=== PATIENT | female | born 1960 | race Caucasian/White ===

== ENCOUNTER 2016-03-10 13:14 | Day surgery (SDC) | payer OTHER ==
[~2016-03-10] VITALS: Ht 162.6 cm; Wt 72.1 kg
[~2016-03-10 13:14] MED LIST: 0.9% Sodium Chloride 1,000 ML IV SCH; ASPI-973 PO; ATEN100T PO; ATOR20TA PO; FLEC100T2 PO; FLUO60TA PO; GARCINIA CAMBOGIA PO; LUTE20TA PO; Lactated Ringer's 1,000 ML IV ONE; MELA1TAB25 SL; METF-496 PO; OMEP20TA86 PO; Sodium Biphos-Phos 133 mL Enema RECTAL PRN; Sodium Chloride LOK Flush 10 mL Syringe IV PRN
[2016-03-10] MEDS ORDERED: Propofol 10,000 mCg/mL 20 mL Inj ONE (13:15)
[2016-03-10] MEDS ORDERED: Ketamine 10 mg/mL 20 mL Inj ONE (13:15)
[2016-03-10] MEDS ORDERED: Glycopyrrolate 0.2 mg/mL 5 mL Inj ONE (13:15)
[2016-03-10 13:40] VITALS: BP 137/88; PULSE 60; RESP 18; O2SAT 96
--- NOTE | 2016-03-10 14:19 | PCM.HPANE ---
Patient Data Date of Service: Mar 10, 2016 Surgeon Admitting Provider: Attending Provider:Charan Stanley MD Primary Care Physician:Jessica Mayorga Other Provider:Yadira Johnson Anesthesia Reason for Visit Positive Fit Ht/WT & BMI Height (Feet): 5 Height (Inches): 4 Weight (Kilograms): 72.12 Body Mass Index 27.00 Allergies Coded Allergies: Penicillins (Verified Allergy, Unknown, 03/09/16) Sulfa (Sulfonamide Antibiotics) (Verified Allergy, Unknown, 03/09/16) diltiazem (Verified Allergy, Unknown, 03/09/16) Past Anesthesia History Anesthesia History: Denies:: Abnormal Airway, Anesthesia Reactions, Difficult Intubation, Fam Anesthesia Reaction, Fam Malignant Hypertherm, Malignant Hyperthermia Diabetes History Hx Diabetes?: Yes Current Bedside Blood Glucose: 98 MRSA MRSA: No Medications Blood Thinner: Aspirin Last Dose Blood Thinner: Mar 09, 2016 Home Meds Incl Beta Jorge: Yes Date Beta Jorge Taken: Mar 10, 2016 Time Beta Jorge Taken: 0600 Reported Medications Omeprazole 20 Mg Tablet.dr20 Mg PO DAILY 03/09/16 Metformin ER 1,000 Mg Tablet1,000 Mg PO DAILYWD Ref 0 03/09/16 Melatonin 1 Mg Tab.subl1 Mg SL HS 03/09/16 Lutein 20 Mg Fuyepz74 Mg PO DAILY 03/09/16 [Garcinia Cambogia] No Conflict Check2 Tab PO DAILY 03/09/16 Fluoxetine 60 Mg Evbpiy05 Mg PO DAILY Ref 0 03/09/16 Flecainide Acetate 100 Mg [id number] Mg PO BID 03/09/16 Atorvastatin (Lipitor)20 Mg Buixvx03 Mg PO DAILY Ref 0 03/09/16 Atenolol 100 Mg Bildef756 Mg PO BID Ref 0 03/09/16 Aspirin 81 Mg Zhekni58 Mg PO DAILY Ref 0 03/09/16 History HEENT History: Denies:: Abnormal Airway Difficult Intubation Dysphagia Hearing Problem Hx of Heart Problems?: Yes Cardiovascular History: Positive for:: Atrial Fibrillation Hypertension Pacemaker (heart rate too slow ) Denies:: AICD Valvular Heart Disease Hx of Respiratory Problem?: No Respiratory History: Denies:: Asthma COPD Cough Hemoptysis Pneumonia Tuberculosis Neurological History: Denies:: CVA Peripheral Neuropathy Hx of GI Problems?: Yes Gastrointestinal History: Positive for:: Gall Bladder Disease (removed ) Gastroesphageal Reflux (controlled with medication) Rectal Bleeding (positive occult test) Denies:: Cirrhosis Diverticulitis Hiatal Hernia Liver Disease Female Hx: Denies:: Currently (hysterectomy) Musculoskeletal History: Denies:: Fibromyalgia Joint Replacement Psycho Social History: Positive for:: Anxiety Hx Depression Hx Surgeries?: Yes (left side ablation, pacemaker (2), hysterectomy, debra, knee sx, right eye) Hx Any Other Health Problems?: Yes Hx Diabetes: YesBedside Blood Glucose: 98 Other Pertinent History: frequent urination Hx Alcohol Use: Yes (maybe once a month) Smoking Status: Current Every Day Smoker (smokes 5 cigarettes daily) Have You Smoked inLast 12 mo: Yes Stop/Bang Treated for Sleep Apnea?: No Do You Have a CPAP Machine?: No S-Snoring: Do You Snore Loudly: No T-Tired: feel tired, fatigued: No O-Obsered: Observed not breath: No P-Blood Pressure: treated: Yes B- Body Mass Index > 35 kg/m2: No A- Age over 50: Yes N- Neck Large Circumference: No G- Gender Male: No JALEN Total Score: 2 JALEN Risk Assessment: Low Risk, <3 Yes Risk Assessment Category Category 1A: Patient has history of documented sleep apnea, and HAS NOT received any narcotic, sedative or anesthesia administration during this stay. Category 1B: Patient has history of documented sleep apnea, and HAS received any narcotic , sedative or anesthesia administration during this stay Category 2: Patient has SUSPECTED Obstructive Sleep Apnea, and HAS received any narcotic , sedative or anesthesia administration during this stay. Category 3: Patient has SUSPECTED Obstructive Sleep Apnea and HAS NOT received narcotic, sedative or anesthesia administration during this stay. Category 4: Outpatient in Procedural Areas with known sleep apnea or who screen positive for High Risk via the STOP/BANG questionnaire. Exam Exam Vital Signs Vital Signs Date Time Temp Pulse Resp B/P Pulse Ox O2 Delivery O2 Flow Rate FiO2 03/10/16 13:40 36.4 60 18 137/88 96 Room Air General Appearance: Alert, Oriented X3, Cooperative, No Acute Distress HEENT/AIRWAY: MP 2 Lungs: Clear to Auscultation, Normal Air Movement Heart: Regular Rate/Rhythm, No Murmurs/Rubs/Gallops Meds/Labs/Diagnostics Admission Meds Current Medications Lactated Ringer's (Lr) 1,000 ml @ 10 mls/hr Q24H ONCE IV Last administered on 03/10/16t 13:41; Start 03/10/16 at 06:00; Stop 03/11/16 at 05:59 Bedside Blood Glucose: 98 Plan Impression Patient chart reviewed, patient interviewed and anesthestic plan with risks, benefits, and alternatives discussed, and informed consent obtained. NPO Status: Appropriate ASA Physical Status: ASA2 Mod Systemic Disease Anesthetic Plan: MAC Bene/Risks/Altern/Consents: Yes HP Complete Prior to Induction: Yes Isidro Mendoza MD Mar 10, 2016 14:19
[2016-03-10 15:15] VITALS: BP 160/89; PULSE 83; RESP 14; O2SAT 94
[2016-03-10 15:25] VITALS: BP 134/77; PULSE 58; O2SAT 92
--- NOTE | 2016-03-10 15:38 | ENDO ---
[address] [address] ENDOSCOPY PROCEDURE PATIENT: RUBÉN HERNANDES : 1960 MR#: [id number] ADMIT: 03/10/2016 JOB ID: [id number] DATE: 03/10/2016 PREPROCEDURE DIAGNOSIS: Hemoccult-positive stool. POSTPROCEDURE DIAGNOSIS: Sigmoid colon polyp, transverse colon polyp, hemorrhoids. PROCEDURE: Colonoscopy with biopsies. ENDOSCOPIST: Dr. Charan Stanley. INDICATIONS: The patient is a 55-year-old woman who was referred for Hemoccult-positive stool. She did not have any gross blood in her stool, no unplanned weight loss, no change in bowel habits. She had no family history of colon cancer. She was aware of some hemorrhoidal tissue. After discussion of risks and benefits, she agreed to proceed with colonoscopy. Because of sick sinus syndrome with pacemaker present, the procedure was done with monitored anesthesia care. MEDICATIONS: See the anesthesia record. FINDINGS: There was a 2-3 mm flat polyp in the sigmoid colon and a 2-3 mm flat polyp in the transverse colon. There were scattered sigmoid diverticula. There were moderate internal hemorrhoids. DESCRIPTION OF PROCEDURE: Procedural sedation was achieved. The patient was connected to hemodynamic monitoring, pulse oximetry, capnography. A magnet was placed on her pacemaker. After digital rectal examination, the PCF H 180 AL colonoscope was passed under visualization until the ileocecal valve and appendiceal orifice were visualized. Photo documentation was only achieved at the ileocecal valve. The scope was then withdrawn and carefully retroflexed in the rectum. There was a 2-3 mm flat polyp in the transverse colon which was removed with cold forceps. There were scattered sigmoid diverticula. There was a 2-3 mm flat polyp in the sigmoid colon which was removed with cold forceps. Retroflexion revealed moderate internal hemorrhoids. No other masses or mucosal abnormalities were identified. The scope was withdrawn and the procedure was terminated. She tolerated the entire procedure well. RECOMMENDATIONS: A letter will be mailed with pathology results. Based on pathology results, colonoscopy in five years is recommended. High-fiber diet is recommended.
[2016-03-10] MEDS ORDERED: Lactated Ringer's 1,000 ML IV SCH (15:45)
[2016-03-10] MEDS ORDERED: Atropine 0.4 mg/mL Inj IVPUSH PRN (15:45)
[2016-03-10] MEDS ORDERED: Ondansetron 2 mg/mL 2 mL Inj IVPUSH PRN (15:45)
--- NOTE | 2016-03-10 15:51 | PCM.ANEP1 ---
Post Anesthesia Phase 1 PACU Phase 1 Assessment Date of Service: Mar 10, 2016 Vital Signs Vital Signs Date Time Temp Pulse Resp B/P Pulse Ox O2 Delivery O2 Flow Rate FiO2 03/10/16 15:25 58 134/77 92 Room Air 03/10/16 15:15 83 14 160/89 94 Room Air 03/10/16 13:40 36.4 60 18 137/88 96 Room Air Anesthetic Administered: MAC Level of Alertness: Sleepy, easy to arouse TRIPATHI's with Equal Strength: Yes Pain: No Nausea or Vomiting: No Oxygen Delivery: Room Air Lungs: Clear to Auscultation, Normal Air Movement Dermatome Level: Full Sensation Isidro Mendoza MD Mar 10, 2016 15:51
[2016-03-10 15:53] VITALS: BP 124/63; PULSE 62; RESP 14; O2SAT 96
--- NOTE | 2016-03-15 14:54 | PATH ---
SURGICAL PATHOLOGY Attending Physician:Johnathan Steven CASE STATUS: Signed Out PATIENT NAME: RUBÉN HERNANDES PID: [id number] : 1960 DATE COLLECTED:03/10/2016 00:00 SPECIMEN: 1: Colon, Biopsy 2: Colon, Biopsy CLINICAL HISTORY: 1: SIGMOID COLON POLYP 2: TRANSVERSE COLON POLYP FINAL DIAGNOSIS: 1. Sigmoid Colon Polyp: Benign colonic mucosa with superficial mucosal hyperplasia. Negative for dysplasia and malignancy. Multiple microscopic levels examined. 2. Transverse Colon Polyp: Sessile serrated adenoma. ICD10 D12.3 GROSS DESCRIPTION: The specimen is received in two formalin filled containers labeled with the patient's name. 1). The specimen is sublabeled "sigmoid colon polyp" and consists of a 0.3 x 0.2 x 0.2 CM portion of tissue which is entirely submitted in cassette 1A. 2). The specimen is sublabeled "transverse colon polyp" and consists of a 0.3 x 0.3 x 0.2 CM portion of tissue which is entirely submitted in cassette 2A. 03/11/2016 [facility] MICRO DESCRIPTION: Please see diagnosis. ICD-9 CODES: CPT CODES: 1: 25035 2: 98767 Electronically Signed Out Sofia Capellan MD [facility] Pathology [facility] [address], [place] [address] Technical component performed at [facility], [facility] [address], [place], [address]
--- NOTE | 2016-03-17 21:43 | PCM.ANEP2 ---
Post Anesthesia Evaluation ASA/CMS Post Anesthesia Date of Service: Mar 10, 2016 VS in Patient's Normal Range?: Yes Resp Stable; Airway Patent?: Yes CV Function & Hydration Stable: Yes Mental Status Recovered?: Yes Pain control Satisfactory?: Yes N/V Control Satisfactory?: Yes Isidro Mendoza MD Mar 17, 2016 21:43
== END 2016-03-10 23:59 | disposition home or self-care (01) ==
LOC: END 13:14
PROVIDERS: ATTEND Student in an Organized Health Care Education/Training Program
DX: D12.3 Benign neoplasm of transverse colon (principal); K57.30 Diverticulosis of large intestine without perforation or abscess without bleeding; K64.8 Other hemorrhoids; I10 Essential (primary) hypertension; I48.91 Unspecified atrial fibrillation; E11.9 Type 2 diabetes mellitus without complications; F41.9 Anxiety disorder, unspecified; F32.9 Major depressive disorder, single episode, unspecified; K21.9 Gastro-esophageal reflux disease without esophagitis; I49.5 Sick sinus syndrome; E78.00 Pure hypercholesterolemia, unspecified; F17.210 Nicotine dependence, cigarettes, uncomplicated; Z79.82 Long term (current) use of aspirin; Z79.84 Long term (current) use of oral hypoglycemic drugs; Z95.0 Presence of cardiac pacemaker
CPT/HCPCS: 45380; 88305; J2250; J7120